=== PATIENT | female | born 1985 | race Caucasian/White ===

== ENCOUNTER 2020-01-31 13:49 | Emergency (ER) | payer OTHER, SELFPAY ==
[2020-01-31 14:00] VITALS: BP 123/87; PULSE 90; RESP 16; TEMP 36.7; O2SAT 99; BMI 23.2
[2020-01-31 14:06] VITALS: BP 123/87; PULSE 90; RESP 16; TEMP 36.7; O2SAT 99
--- NOTE | 2020-01-31 14:30 | XR_ITS ---
EXAMINATION: XR CHEST CLINICAL INFORMATION: Cough COMPARISON: Chest x-ray 09/01/2019 TECHNIQUE: Frontal portable view of the chest was obtained. 2:45 PM FINDINGS: No significant abnormality is noted involving the heart, lungs, mediastinum, bony thorax or soft tissues. XR/XR chest 1V IMPRESSION: Unremarkable examination.
--- NOTE | 2020-01-31 15:11 | ED.URI ---
HPI - URI/Sore Throat General Chief Complaint: Upper Respiratory Symptoms Stated Complaint: sore throat,cough Time Seen by Provider: 01/31/20 14:22 History of Present Illness HPI Narrative: Patient complains of runny nose for 2 days cough x1 day body aches mild sore throat but no pain with eating, no shortness of breath no fever no chills This started 2 days ago and is mild, there is no previous treatment Related Data Previous Rx's Medication Instructions Recorded azithromycin [Zithromax Z-Umesh] See Rx Instructions .ROUTE 01/31/20 .COMPLEX #6 tab azithromycin [Zithromax Z-Umesh] See Rx Instructions .ROUTE 01/31/20 .COMPLEX #6 tab Allergies Allergy/AdvReac Type Severity Reaction Status Date / Time Penicillins [PENICILLINS] Allergy Unknown UNKNOWN Unverified 12/06/19 19:51 Review of Systems Review of Systems: Review of systems is positive for runny nose cough and sore throat There is no fever no chills no weakness no shortness of breath no difficulty swallowing no sputum no abdominal pain no nausea no vomiting no diarrhea no leg swelling no calf pain no weakness Yes all other systems are reviewed and are negative [facility] Past Medical History Source: nursing notes reviewed Medical History (Updated 01/31/20 @ 15:24 by ERICK Reed) delivery delivered No known health problems Social History Social History Alcohol intake: never Smoking Status: Never smoker Use of substances other than those prescribed or required for medical reasons: No Advance Directives: No Advance Directives Information Provided: Yes Physical Exam Vital Signs: Vital Signs: Last Vital Signs Temp 98.1 F 01/31/20 14:06 Pulse 90 01/31/20 14:06 Resp 16 01/31/20 14:06 BP 123/87 01/31/20 14:06 Pulse Ox 99 01/31/20 14:06 Body Mass Index 23.2 Patient is comfortable appearing speaks full sentences no acute distress comfortable A&O x3 The eyes are normal without redness or discharge the nose the sinuses are nontender the throat is clear without redness swelling no drooling no voice change no exudate The chest is clear to auscultation bilaterally with full equal breath sounds The heart no murmurs Extremities no edema, no calf tenderness Neuro no focal deficit Course Course Course Narrative: Patient remains comfortable throughout visit, chest x-ray was negative As patient has history of multiple episodes of pneumonia in the past she is given a prescription for Zithromax and COVID results are pending and she is discharged Discharge Plan Discharge Clinical Impression: Bronchitis Patient Disposition: Home, Self-Care Additional Instructions: Chest x-ray was normal, but as you have had pneumonia several times before we gave you a prescription for Zithromax antibiotic We will call you with COVID test results in 1-3 days Return to ER any time for difficulty breathing, worsening symptoms any worse condition or any concerns Prescriptions: New azithromycin [Zithromax Z-Umesh] 250 mg tablet See Rx Instructions .ROUTE .COMPLEX Qty: 6 RF: 0 azithromycin [Zithromax Z-Umesh] 250 mg tablet See Rx Instructions .ROUTE .COMPLEX Qty: 6 RF: 0 Interventions: ED Discharge Assessment Last Done: 01/31/20 15:32 Discharge Date/Time: 01/31/20 15:33
== END 2020-01-31 15:33 | disposition home or self-care (01) ==
PROVIDERS: Physician Assistant Medical; Emergency Provider Emergency Medicine
DX: J40 Bronchitis, not specified as acute or chronic (principal); R05 Cough; M79.10 Myalgia, unspecified site; Z20.828 Contact with and (suspected) exposure to other viral communicable diseases
CPT/HCPCS: 71045; 99283; 99284; U0003

== ENCOUNTER 2020-05-08 12:33 | Emergency (ER) | payer OTHER, SELFPAY ==
--- NOTE | ~2020-05-08 | US_ITS ---
EXAMINATION: PELVIC ULTRASOUND WITH DOPPLER CLINICAL INFORMATION: Pelvic pain with question of tubo-ovarian abscess or torsion COMPARISON: CT abdomen pelvis earlier today TECHNIQUE: Both transabdominal and endovaginal scanning was performed. Color-flow Doppler imaging was utilized. FINDINGS: Normal-appearing anteverted and anteflexed uterus is present measuring 8.6 x 4.5 x 5.1 cm. No uterine masses are seen. The endometrium is homogeneous measuring 1 cm in thickness. The right ovary measures 2.9 x 1.8 x 1.4 cm for a volume of 3.8 mL and includes a approximately 1 cm cyst. Left ovary measures 3.6 x 1.8 x 1.7 cm for a volume of 5.8 mL and appears unremarkable. Trace fluid is present in the cul-de-sac. Doppler exam shows symmetric flow in both ovaries with no findings to suggest torsion. US/US pelvic ovarian doppler IMPRESSION: The uterus and ovaries are unremarkable. There is no evidence to suggest ovarian torsion or tubo-ovarian abscess.
--- NOTE | ~2020-05-08 | CT_ITS ---
EXAMINATION: CT ABDOMEN AND PELVIS WITH CONTRAST CLINICAL INFORMATION: Right lower quadrant pain and nausea with question of appendicitis COMPARISON: CT abdomen pelvis 08/08/2019 TECHNIQUE: Multidetector volumetric images were obtained from the superior aspect of the liver through the pubic symphysis following administration 85 mL of Omnipaque 350 intravenous contrast. Sagittal and coronal reformatted images were obtained on the technologist's workstation. Oral contrast: No This CT examination was performed using dose optimization techniques as appropriate, variously including the following: *Automated exposure control *Adjustment of mA and/or kV according to patient size (this includes techniques or standardized protocols for targeted exams where dose is matched to indication/reason for exam; i.e. extremities or head) *Use of iterative reconstruction technique DLP: 452 mGy-cm FINDINGS: LUNG BASES: The visualized lung bases are unremarkable. LIVER, GALLBLADDER, AND BILIARY TREE: The liver is normal in size, shape, and attenuation. A tiny hypodensity is seen in the right lobe of the liver most likely a cyst unchanged from the prior study (series 3 image 7). No worrisome focal hepatic lesion or biliary ductal dilatation is present. The gallbladder is unremarkable with no evidence of radiopaque gallstones, gallbladder wall thickening, or obvious pericholecystic inflammatory changes. PANCREAS: Unremarkable. SPLEEN: Unremarkable. ADRENAL GLANDS: Unremarkable. KIDNEYS AND URETERS: The kidneys are normal in size, shape, and attenuation. No hydronephrosis, hydroureter, or calculi seen. No perinephric stranding. BLADDER: Unremarkable. GASTROINTESTINAL TRACT: The small and large bowel are unremarkable. The appendix is unremarkable. ABDOMINAL WALL: No significant hernia is appreciated. LYMPH NODES: No retroperitoneal lymphadenopathy VASCULAR: Again noted is dilatation of both ovarian veins with reflux demonstrated. The right ovarian vein measures 8.5 mm in size in the left measures 1.3 cm. There are bilateral pelvic varices present as well. These can cause chronic pelvic pain especially if worsened with the prolonged upright position and relieved with the supine position. No other vascular abnormality is seen. PELVIC VISCERA: An anteverted uterus is present. An abnormal adnexal mass is not seen. Moderately extensive bilateral pelvic varices are noted (see above). No free pelvic fluid is seen. OSSEOUS STRUCTURES: Degenerative changes noted at L5-S1 with limbus S1 vertebrae. CT/CT abdomen pelvis w con IMPRESSION: 1. The appendix is unremarkable without evidence to suggest appendicitis. 2. 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 This can be a cause of chronic pelvic pain. Please see discussion above. Consultation with an interventional radiologist may be of value if the above-mentioned symptom complex is present.
--- NOTE | ~2020-05-08 | US_ITS ---
EXAMINATION: PELVIC ULTRASOUND WITH DOPPLER CLINICAL INFORMATION: Pelvic pain with question of tubo-ovarian abscess or torsion COMPARISON: CT abdomen pelvis earlier today TECHNIQUE: Both transabdominal and endovaginal scanning was performed. Color-flow Doppler imaging was utilized. FINDINGS: Normal-appearing anteverted and anteflexed uterus is present measuring 8.6 x 4.5 x 5.1 cm. No uterine masses are seen. The endometrium is homogeneous measuring 1 cm in thickness. The right ovary measures 2.9 x 1.8 x 1.4 cm for a volume of 3.8 mL and includes a approximately 1 cm cyst. Left ovary measures 3.6 x 1.8 x 1.7 cm for a volume of 5.8 mL and appears unremarkable. Trace fluid is present in the cul-de-sac. Doppler exam shows symmetric flow in both ovaries with no findings to suggest torsion. US/US transvaginal IMPRESSION: The uterus and ovaries are unremarkable. There is no evidence to suggest ovarian torsion or tubo-ovarian abscess.
--- NOTE | ~2020-05-08 | US_ITS ---
EXAMINATION: PELVIC ULTRASOUND WITH DOPPLER CLINICAL INFORMATION: Pelvic pain with question of tubo-ovarian abscess or torsion COMPARISON: CT abdomen pelvis earlier today TECHNIQUE: Both transabdominal and endovaginal scanning was performed. Color-flow Doppler imaging was utilized. FINDINGS: Normal-appearing anteverted and anteflexed uterus is present measuring 8.6 x 4.5 x 5.1 cm. No uterine masses are seen. The endometrium is homogeneous measuring 1 cm in thickness. The right ovary measures 2.9 x 1.8 x 1.4 cm for a volume of 3.8 mL and includes a approximately 1 cm cyst. Left ovary measures 3.6 x 1.8 x 1.7 cm for a volume of 5.8 mL and appears unremarkable. Trace fluid is present in the cul-de-sac. Doppler exam shows symmetric flow in both ovaries with no findings to suggest torsion. US/US pelvic complete IMPRESSION: The uterus and ovaries are unremarkable. There is no evidence to suggest ovarian torsion or tubo-ovarian abscess.
[2020-05-08 19:36] VITALS: BP 144/90; PULSE 71; RESP 18; TEMP 36.9; O2SAT 100; BMI 23.0
[2020-05-08] MEDS: 0.9 % Sodium Chloride 1,000 ML 999 ML IVCONT (20:09)
[2020-05-08] MEDS: ondansetron HCL 4 MG/2 ML VIAL IVPUSH (20:09)
--- NOTE | 2020-05-08 20:11 | PC.NURSE ---
iv inserted, labs drawn, urine obtained, pt medicated per order- pt refusing morphine at this time-provider aware, will continue to monitor.
[2020-05-08 20:12] LABS: MANUAL DIFF FLAG NO
[2020-05-08 20:15] LABS: Basophils Percent Auto 0.4 % (0-2); Eosinophils Absolute Auto 0.1 X10*3/uL (0.0-0.4); Eosinophils Percent Auto 1.6 % (0-4); Hematocrit 37.2 % (37-47); Hemoglobin 12.1 g/dl (12.0-16.0); Imm Gran Abs Auto 0.03 X10*3/uL (0.00-0.03); Imm Gran Pct Auto 0.4 % (0.0-0.4); Lymphocytes Absolute Auto 2.4 X10*3/uL (1.2-4.9); Lymphocytes Percent Auto 30.9 % (20-40); Mean Corpuscular HGB Conc 32.5 g/dl (31.0-35.0); Mean Corpuscular Hemoglobin 28.7 pg (27.0-33.0); Mean Corpuscular Volume 88.2 fL (80-98); Mean Platelet Volume 11.6 fL (9.4-12.3); Monocytes Absolute Auto 0.6 X10*3/uL (0.1-1.2); Monocytes Percent Auto 7.6 % (2-11); Neutrophils Absolute Auto 4.5 X10*3/uL (2.0-8.3); Neutrophils Percent Auto 59.1 % (45-73); Platelet Count 210 X10*3/uL (160-400); Red Blood Count 4.22 X10*6/uL (4.20-5.50); Red Cell Distribution Width 13.9 % (11.0-16.0); White Blood Count 7.7 X10*3/uL (4.8-10.8)
[2020-05-08 20:28] LABS: Glucose Urine UA NEG (NEG); Leukocyte Esterase Urine NEG (NEG); Nitrite Urine NEG (NEG); Urine Blood 2+ (NEG); Urine Ketones 5 MG/DL (NEG); Urine Protein NEG (NEG-TRACE)
[2020-05-08 20:30] LABS: Appearance Urine CLEAR; Color Urine YELLOW; INTERNATIONAL NORM RATIO 1.3 (0.9-1.1); Prothrombin Time 15.5 SEC (10.8-13.0)
[2020-05-08 20:39] LABS: Ethanol < 10 mg/dL
[2020-05-08 20:41] VITALS: BP 110/74; PULSE 83; RESP 18; TEMP 36.8; O2SAT 100
[2020-05-08 20:41] LABS: Amphetamine Screen Urine Not Detected (Not Detect); Barbiturates, Urine Not Detected (Not Detect); Benzodiazepines Screen Urine Not Detected (Not Detect); Cannabinoid Screen Urine Not Detected (Not Detect); Cocaine Screen Urine Not Detected (Not Detect); Opiate Screen Urine Not Detected (Not Detect); Phencyclidine Screen Urine Not Detected (Not Detect)
--- NOTE | 2020-05-08 20:42 | ED.ABDPAIN ---
HPI - Abdominal Pain General Chief Complaint: Abdominal Pain Stated Complaint: abd pain Time Seen by Provider: 05/08/20 12:39 Source: patient Mode of arrival: ambulatory Limitations: no limitations History of Present Illness HPI narrative: 34-year-old female with a past medical history of a section otherwise no other significant past medical history presenting to the ED with complaints of periumbilical abdominal pain that started yesterday that has now radiated to her right lower quadrant with associated nausea. Denies any fevers, chills, vomiting, sore throat, cough, shortness of breath, chest pain, back pain, dysuria, vaginal discharge, diarrhea or constipation or any other symptoms complaints or concerns at this time. Denies recent travel or sick contacts. MD elicited complaint: abdominal pain Pertinent past history: none Onset (ago): day(s) (Since last night worse today) Pain Consistency: constant Location: periumbilical and RLQ Severity: severe Quality: aching Exacerbating factors: movement Relieving factors: nothing Associated symptoms: nausea Related Data Date of Last Menstrual Period: 05/08/20 Patient : No Previous Rx's Medication Instructions Recorded azithromycin [Zithromax Z-Umesh] See Rx Instructions .ROUTE 01/31/20 .COMPLEX #6 tab azithromycin [Zithromax Z-Umesh] See Rx Instructions .ROUTE 01/31/20 .COMPLEX #6 tab Allergies Allergy/AdvReac Type Severity Reaction Status Date / Time Penicillins [PENICILLINS] Allergy Unknown UNKNOWN Unverified 12/06/19 19:51 Review of Systems Review of Systems Constitutional : No Weight loss, No Fever, No Chills, No Night Sweats, No Fatigue, NoMalaise ENT/Mouth: No ear pain, No sore throat, No Difficulty swallowing Cardiovascular : No Chest Pain, No SOB, No Dyspnea on Exertion, No Orthopnea, NoEdema, No Palpitations Respiratory : No Cough, No Sputum, No Wheezing, No Dyspnea Gastrointestinal : + Nausea, + Abdominal pain, No Vomiting, No Diarrhea, No Hematochezia, No Melena Genitourinary : No irregular bleeding, No Dysuria, No Urinary Frequency, No Hematuria,No Urinary Incontinence, No Urgency, No Flank Pain Musculoskeletal : No joint pain, No Myalgias, No Joint Swelling Skin : No Skin Lesions, No rash Neuro : No Weakness, No Numbness, No Paresthesias, No Loss of Consciousness, NoDizziness, No Headache Psych : No Social Issues, Heme/Lymph: No Bruising, No Bleeding,No Lymphadenopathy Endocrine : No Polyuria, No Polydipsia, No Temperature Intolerance Yes all other systems are reviewed and are negative Physical Exam Vital Signs: Vital Signs: Last Vital Signs Temp 98.3 F 05/08/20 20:41 Pulse 83 05/08/20 20:41 Resp 18 05/08/20 20:41 BP 110/74 05/08/20 20:41 Pulse Ox 100 05/08/20 20:41 Body Mass Index 23.0 vital signs have been reviewed as normal and appeared to be correct. Blood pressure hypertensive at 144/90. Heart rate normal. Respiration rate normal. Temperature normal. Oxygen saturation normal. Appearance: Alert. Oriented X3. In pain walking holding her right lower quadrant otherwise No other acute distress. Head: Normal external exam. Normocephalic. Eyes: PERRLA. EOMI. Conjunctiva and sclera normal. Eyelids normal. ENT: Pharynx normal. Uvula midline. Moist mucous membranes. Neck: Normal inspection. Neck supple. FROM. No adenopathy. No meningeal signs. CVS: Normal heart rate and rhythm. Heart sound normal. No murmurs noted. Pulses normal throughout. Respiratory: No respiratory distress. Painless inspiration. Breath sounds normal. No wheezes/rales/rhonchi noted. Chest nontender. No accessory muscle usage noted or decreased air movement noted. Abdomen: Soft and moderate tenderness to palpation diffusely although worse in the right lower quadrant with guarding. Positive Rovsing sign/obturator's sign/psoas sign. With positive rebound tenderness. Nondistended. rigidity. Bowel sounds normal in all 4 quadrants. No distention noted. No organomegaly noted. No visible injury noted. Negative Ledesma sign. Back: No CVA tenderness. Full range of motion noted. Skin: Skin warm and dry. Normal skin color. Normal skin turgor. No rashes/lesions/lacerations noted. Extremities: Extremities exhibit normal range of motion. Extremities nontender. Neuro: Oriented X 3. No motor deficit. No sensory deficit. Reflexes normal. Course Course Course Narrative: 20pm - 34-year-old female with a past medical history of a section otherwise no other significant past medical history presenting to the ED with complaints of periumbilical abdominal pain that started yesterday that has now radiated to her right lower quadrant with associated nausea. - On exam patient is in moderate pain holding her right lower quadrant otherwise not on any other acute distress. Vital signs are stable within normal limits. Patient is afebrile. Nontoxic appearing. No signs of dehydration. Has moderate tenderness to palpation of the right lower quadrant although her abdomen is soft. - Concern for appendicitis vs kidney stone vs UTI/pyelonephritis - Plan: Labs, UA, serum quant. Provide a L of IV fluids, 4 mg of Zofran I offered the patient morphine although patient declined she reports she took symptomatic treatment prior to arrival and help significantly. Along with a CT scan of abdomen and pelvis with IV contrast then re-evaluate. MDM - Abdominal Pain Lab Data Result diagrams: 05/08/20 20:00 05/08/20 20:00 Labs: Lab Results 05/08/20 05/08/20 05/08/20 Range/Units 20:00 20:00 20:00 WBC 7.7 (4.8-10.8) X10*3/uL RBC 4.22 (4.20-5.50) X10*6/uL Hgb 12.1 (12.0-16.0) g/dl Hct 37.2 (37-47) % MCV 88.2 (80-98) fL MCH 28.7 (27.0-33.0) pg MCHC 32.5 (31.0-35.0) g/dl RDW 13.9 (11.0-16.0) % Plt Count 210 (160-400) X10*3/uL MPV 11.6 (9.4-12.3) fL Immature Gran % (Auto) 0.4 (0.0-0.4) % Neut % (Auto) 59.1 (45-73) % Lymph % (Auto) 30.9 (20-40) % [place] % (Auto) 7.6 (2-11) % Eos % (Auto) 1.6 (0-4) % Baso % (Auto) 0.4 (0-2) % Lymph # (Auto) 2.4 (1.2-4.9) X10*3/uL [place] # (Auto) 0.6 (0.1-1.2) X10*3/uL Eos # (Auto) 0.1 (0.0-0.4) X10*3/uL Baso # (Auto) 0.0 (0.0-0.2) X10*3/uL Abs Immat Gran (auto) 0.03 (0.00-0.03) X10*3/uL Absolute Neuts (auto) 4.5 (2.0-8.3) X10*3/uL Absolute Nucleated RBC 0.000 (0.0-0.012) X10*3/uL Nucleated RBC % (auto) 0.0 (0.0-0.2) /100WBC PT 15.5 H (10.8-13.0) SEC INR 1.3 H (0.9-1.1) Urine Color Urine Appearance Urine pH (5.0-8.0) Ur Specific [place] (1.005-1.025) Urine Protein (NEG-TRACE) MG/DL Urine Glucose (UA) (NEG) MG/DL Urine Ketones (NEG) MG/DL Urine Blood (NEG) Urine Nitrite (NEG) Ur Leukocyte Esterase (NEG) Urine Opiates Screen (Not Detect) Ur Barbiturates Screen (Not Detect) Ur Phencyclidine Scrn (Not Detect) Ur Amphetamines Screen (Not Detect) U Benzodiazepines Scrn (Not Detect) Urine Cocaine Screen (Not Detect) U Marijuana (THC) Screen (Not Detect) Ethyl Alcohol < 10 mg/dL 05/08/20 05/08/20 Range/Units 20:00 20:00 WBC (4.8-10.8) X10*3/uL RBC (4.20-5.50) X10*6/uL Hgb (12.0-16.0) g/dl Hct (37-47) % MCV (80-98) fL MCH (27.0-33.0) pg MCHC (31.0-35.0) g/dl RDW (11.0-16.0) % Plt Count (160-400) X10*3/uL MPV (9.4-12.3) fL Immature Gran % (Auto) (0.0-0.4) % Neut % (Auto) (45-73) % Lymph % (Auto) (20-40) % [place] % (Auto) (2-11) % Eos % (Auto) (0-4) % Baso % (Auto) (0-2) % Lymph # (Auto) (1.2-4.9) X10*3/uL [place] # (Auto) (0.1-1.2) X10*3/uL Eos # (Auto) (0.0-0.4) X10*3/uL Baso # (Auto) (0.0-0.2) X10*3/uL Abs Immat Gran (auto) (0.00-0.03) X10*3/uL Absolute Neuts (auto) (2.0-8.3) X10*3/uL Absolute Nucleated RBC (0.0-0.012) X10*3/uL Nucleated RBC % (auto) (0.0-0.2) /100WBC PT (10.8-13.0) SEC INR (0.9-1.1) Urine Color YELLOW Urine Appearance CLEAR Urine pH 6.0 (5.0-8.0) Ur Specific [place] 1.020 (1.005-1.025) Urine Protein NEG (NEG-TRACE) MG/DL Urine Glucose (UA) NEG (NEG) MG/DL Urine Ketones 5 (NEG) MG/DL Urine Blood 2+ H (NEG) Urine Nitrite NEG (NEG) Ur Leukocyte Esterase NEG (NEG) Urine Opiates Screen Not Detected (Not Detect) Ur Barbiturates Screen Not Detected (Not Detect) Ur Phencyclidine Scrn Not Detected (Not Detect) Ur Amphetamines Screen Not Detected (Not Detect) U Benzodiazepines Scrn Not Detected (Not Detect) Urine Cocaine Screen Not Detected (Not Detect) U Marijuana (THC) Screen Not Detected (Not Detect) Ethyl Alcohol mg/dL Discharge Plan Discharge Prescriptions: No Action azithromycin [Zithromax Z-Umesh] 250 mg tablet See Rx Instructions .ROUTE .COMPLEX Qty: 6 RF: 0 azithromycin [Zithromax Z-Umesh] 250 mg tablet See Rx Instructions .ROUTE .COMPLEX Qty: 6 RF: 0 PMFSH Past Medical History Attestation statement: The following information was validated with the patient. Medical History delivery delivered No known health problems Date of Last Menstrual Period: 05/08/20 Social History Social History Alcohol intake: never Smoking Status: Never smoker Use of substances other than those prescribed or required for medical reasons: No Advance Directives: No Advance Directives Information Provided: No
[2020-05-08 20:43] LABS: Bacteria Urine TRACE /LPF; Mucus Urine TRACE /LPF; Squamous Epithelial Cell Urine TRACE /LPF; UACC CULT NO; WBC Urine 0-2 /HPF (0-4)
[2020-05-08 20:48] LABS: HCG Quantitative < 2 mIU/mL
[2020-05-08 20:49] LABS: Influenza A PCR NEGATIVE (Negative); Influenza B PCR NEGATIVE (Negative); Resp Syncy Virus RNA Qual PCR NEGATIVE (Negative); SARS COV2 PCR INHOUSE NEGATIVE (Negative)
[2020-05-08 20:57] LABS: Alanine Aminotransferase 12 U/L (0-31); Albumin Level 4.6 g/dL (3.5-5.0); Alkaline Phosphatase 65 U/L (39-117); Anion Gap 14 (12-20); Aspartate Amino Transferase 15 U/L (5-31); Bilirubin Direct 0.2 mg/dL (0.0-0.5); Blood Urea Nitrogen 7 mg/dL (9-16); Carbon Dioxide 27 mmol/L (22-29); Chloride 100 mmol/L (96-108); Creatinine Clr Calc Pharmacy 96.7; Estimated Glomerular Filt Rate > 60; Glucose Random 91 mg/dL (60-115); Lipase 10 U/L (8-78); Potassium 3.7 mmol/L (3.3-5.1); Sodium 137 mmol/L (135-145); Total Protein 7.5 g/dL (6.5-8.0)
[2020-05-08 21:07] LABS: Bilirubin Total 0.6 mg/dL (0.0-1.0)
[2020-05-08 21:11] LABS: UPreg QC Valid YES; Urine Pregnancy NEGATIVE (NEGATIVE)
[2020-05-08] MEDS: iohexoL 350 MG/ML 100 ML INFUS..BTL IV (21:16)
[2020-05-08 22:52] VITALS: BP 113/66; PULSE 66; RESP 18; TEMP 36.9; O2SAT 99
[2020-05-09] VITALS: BP 99/62; PULSE 71; RESP 18; TEMP 37.2; O2SAT 100
[2020-05-09 02:00] VITALS: BP 105/67; PULSE 80; RESP 18; TEMP 36.8; O2SAT 100
== END 2020-05-09 02:09 | disposition home or self-care (01) ==
PROVIDERS: Physician Assistant Medical; Emergency Provider Emergency Medicine Emergency Medical Services
DX: N94.89 Other specified conditions associated with female genital organs and menstrual cycle (principal); N83.201 Unspecified ovarian cyst, right side; Z20.822 Contact with and (suspected) exposure to COVID-19
CPT/HCPCS: 0241U; 36415; 74177; 76830; 76856; 80048; 80076; 80307; 80320; 81001; 81025; 83690; 83735; 84702; 85025; 85610; 93975; 96361; 96374; 96375; 99284; 99285; J2405; Q9967

== ENCOUNTER 2020-07-06 10:04 | Emergency (ER) | payer OTHER, SELFPAY ==
[2020-07-06 10:07] VITALS: BP 121/70; PULSE 80; RESP 16; TEMP 36.9; O2SAT 100; BMI 25.0
--- NOTE | 2020-07-06 10:25 | ED.EYEPROB ---
HPI - Eye Problem General Chief complaint: Eye Problems Stated complaint: EYE ISSUE Time Seen by Provider: 07/06/20 10:16 Source: patient Mode of arrival: ambulatory Limitations: no limitations History of Present Illness HPI Narrative: Patient presents to the ED for painful lump on right upper eyelid for the past 4 days. Patient denies any recent trauma to the eye. Patient denies any change in vision, blurry vision, watery discharge, foreign body in the eye, or headache. Related Data Previous Rx's Medication Instructions Recorded azithromycin [Zithromax Z-Umesh] See Rx Instructions .ROUTE 01/31/20 .COMPLEX #6 tab azithromycin [Zithromax Z-Umesh] See Rx Instructions .ROUTE 01/31/20 .COMPLEX #6 tab naproxen 500 mg PO BID PRN #20 tab 05/09/20 doxycycline hyclate 100 mg PO BID 10 Days #20 cap 07/06/20 Allergies Allergy/AdvReac Type Severity Reaction Status Date / Time Penicillins [PENICILLINS] Allergy Unknown UNKNOWN Unverified 12/06/19 19:51 Review of Systems Review of Systems: Yes all other systems are reviewed and are negative Constitutional: Constitutional: Reports as per HPI and Reports no additional constitutional complaints Eyes: Eyes: Reports as per HPI and Reports no additional eye complaints Comments: Lump on right eye ENT: Reports system reviewed and no additional complaints, except as documented and Reports as per HPI Cardiovascular: Cardiovascular: Reports as per HPI and Reports no additional cardiovascular complaints Respiratory: Respiratory: Reports as per HPI and Reports no additional respiratory complaints Gastrointestinal: Gastrointestinal: Reports as per HPI and Reports no additional gastrointestinal complaints Musculoskeletal: Musculoskeletal: Reports no additional musculoskeletal complaints and Reports as per HPI Neurologic: Reports system reviewed and no additional complaints, except as documented and Reports as per HPI Psychiatric: Psychiatric: Reports no additional psychiatric complaints and Reports as per HPI PMF Past Medical History Medical History delivery delivered No known health problems Social History Social History Alcohol intake: never Smoking Status: Never smoker Advance Directives: No Advance Directives Information Provided: No Physical Exam Vital Signs: Vital Signs: Last Vital Signs Temp 98.5 F 07/06/20 10:07 Pulse 80 07/06/20 10:07 Resp 16 07/06/20 10:07 BP 121/70 07/06/20 10:07 Pulse Ox 100 07/06/20 10:07 Body Mass Index 25.0 Const: General: cooperative, healthy appearing, comfortable, no acute distress, well developed, alert and awake; No Physically active Orientation/consciousness: patient oriented x3 HENMT: Head: Yes normal to inspection, Yes No palpable skull fracture present, Yes normocephalic, Yes atraumatic, No abrasion, No Weston's sign, No contusion, No cranial bruits, No hematoma, No laceration, No occipital foramen tenderness, No palpable skull fracture, No raccoon eyes, No scalp lesion, No scalp tenderness, No Temporal artery tenderness present and No periorbital ecchymosis Eyes: Other: Right eye; positive for painful lump on the right upper eyelid with some erythema. Negative for any discharge, negative for erythema of conjunctiva/scleral. Left eye: Normal Neck: Neck: Yes normal visual inspection, Yes full ROM, Yes no lymphadenopathy, Yes no meningeal signs, Yes trachea midline, Yes supple and No tender Chest: Chest palpation & inspection: normal inspection of the chest and normal palpation of entire chest wall Resp: Effort & Inspection: normal respiratory effort and able to speak in complete sentences Auscultation: clear to auscultation bilaterally Cardio: Jugular venous distension: no JVD Heart sounds: S1 normal heart sound present and S2 normal heart sound present GI: Inspection: Yes normal to inspection and No abdominal wall ecchymosis Palpation (GI): Soft to palpation, not firm, nontender, no guarding and not rigid : General: No CVA tenderness and Yes no CVA tenderness Back/Spine/Pelvis: Back: no CVA tenderness, No CVA tenderness and No back tenderness Skin: General skin exam: no rashes or lesions noted and elasticity normal Neuro: General: patient oriented x3, no meningeal signs and CN's II-XI intact bilaterally Cranial nerves: Yes CN's II-XII intact bilaterally Extrem: General: Yes normal to inspection and Yes full ROM Psych: Appearance: grossly normal, well kempt and not disheveled Course Course Course Narrative: History physical exam indicates stye. Patient educated on stye. Reevaluation(s) Reevaluation #1: Patient informed to continue practicing warm compress and will be discharged with doxycycline. Patient form at times stye can become chronic and recommend follow-up with engineering coordinator. MDM - Eye Problem MDM Narrative Medical decision making narrative: syte Discharge Plan Discharge Clinical Impression: External hordeolum Patient Disposition: Home, Self-Care Instructions: Stye (ED) Additional Instructions: Return to the ED immediately for worsening swelling, redness, change in vision, headache, dizziness, fever, chills, or any other concerning symptoms. Recommend warm compress on eye 4 times a day for 15 minutes. Take antibiotics as prescribed. You take [id number] NSAIDs ( motrin/alleve). Prescriptions: New doxycycline hyclate 100 mg capsule 100 mg PO BID 10 Days Qty: 20 RF: 0 No Action azithromycin [Zithromax Z-Umesh] 250 mg tablet See Rx Instructions .ROUTE .COMPLEX Qty: 6 RF: 0 azithromycin [Zithromax Z-Umesh] 250 mg tablet See Rx Instructions .ROUTE .COMPLEX Qty: 6 RF: 0 naproxen 500 mg tablet 500 mg PO BID PRN (Reason: pain) Qty: 20 RF: 0 Referrals: Kobi Lunsford [Physician] - 2 days (Right eye stye) Interventions: ED Discharge Assessment Last Done: 07/06/20 10:45 Discharge Date/Time: 07/06/20 10:45 Print Language: Tajik
== END 2020-07-06 10:45 | disposition home or self-care (01) ==
PROVIDERS: Emergency Provider Emergency Medicine
DX: H00.011 Hordeolum externum right upper eyelid (principal)
CPT/HCPCS: 99283

== ENCOUNTER 2020-10-13 15:08 | Outpatient (REF) | payer OTHER, SELFPAY ==
[2020-10-13 15:26] LABS: MANUAL DIFF FLAG NO
[2020-10-13 15:33] LABS: Basophils Percent Auto 0.3 % (0-2); Eosinophils Absolute Auto 0.2 X10*3/uL (0.0-0.4); Eosinophils Percent Auto 2.2 % (0-4); Hematocrit 34.5 % (37-47); Hemoglobin 11.1 g/dl (12.0-16.0); Imm Gran Abs Auto 0.01 X10*3/uL (0.00-0.03); Imm Gran Pct Auto 0.1 % (0.0-0.4); Lymphocytes Absolute Auto 2.2 X10*3/uL (1.2-4.9); Lymphocytes Percent Auto 33.1 % (20-40); Mean Corpuscular HGB Conc 32.2 g/dl (31.0-35.0); Mean Corpuscular Hemoglobin 28.4 pg (27.0-33.0); Mean Corpuscular Volume 88.2 fL (80-98); Mean Platelet Volume 11.4 fL (9.4-12.3); Monocytes Absolute Auto 0.5 X10*3/uL (0.1-1.2); Monocytes Percent Auto 7.5 % (2-11); Neutrophils Absolute Auto 3.8 X10*3/uL (2.0-8.3); Neutrophils Percent Auto 56.8 % (45-73); Platelet Count 209 X10*3/uL (160-400); Red Blood Count 3.91 X10*6/uL (4.20-5.50); Red Cell Distribution Width 13.2 % (11.0-16.0); White Blood Count 6.7 X10*3/uL (4.8-10.8)
[2020-10-13 16:19] LABS: T4 Thyroxine 6.4 ug/dL (4.5-12.0); Thyroid Stimulating Hormone 1.08 uIU/mL (0.32-4.0)
== END 2020-10-13 15:09 | disposition home or self-care (01) ==
LOC: HO.LAB 15:08
PROVIDERS: Visit Provider Psychiatry & Neurology Neurology
DX: R51.9 Headache, unspecified (principal); F41.9 Anxiety disorder, unspecified
CPT/HCPCS: 36415; 84436; 84443; 85025

== ENCOUNTER 2020-12-19 20:04 | Inpatient (IN) | payer OTHER, SELFPAY ==
--- NOTE | ~2020-12-19 | CT_ITS ---
EXAMINATION: CT ABDOMEN AND PELVIS WITH CONTRAST CLINICAL INFORMATION: Right lower quadrant pain COMPARISON: Previous CT scan of the abdomen and pelvis most recent 12/19/2020 and pelvic ultrasound April 2020 TECHNIQUE: Multidetector volumetric images were obtained from the superior aspect of the liver through the pubic symphysis following administration 85 mL of Omnipaque 350 intravenous contrast. Sagittal and coronal reformatted images were obtained on the technologist's workstation. Oral contrast: Yes This CT examination was performed using dose optimization techniques as appropriate, variously including the following: *Automated exposure control *Adjustment of mA and/or kV according to patient size (this includes techniques or standardized protocols for targeted exams where dose is matched to indication/reason for exam; i.e. extremities or head) *Use of iterative reconstruction technique DLP: 330 mGy-cm FINDINGS: LUNG BASES: The visualized lung bases are unremarkable. LIVER, GALLBLADDER, AND BILIARY TREE: The liver is normal in size, shape, and attenuation. There are small low-attenuation liver lesions that are stable and probably represent small cysts. No biliary ductal dilatation is present. The gallbladder is unremarkable with no evidence of radiopaque gallstones, gallbladder wall thickening, or obvious pericholecystic inflammatory changes. PANCREAS: Unremarkable. SPLEEN: Unremarkable. ADRENAL GLANDS: Unremarkable. KIDNEYS AND URETERS: The kidneys are normal in size, shape, and attenuation. No hydronephrosis, hydroureter, or calculi seen. No perinephric stranding. BLADDER: Unremarkable. GASTROINTESTINAL TRACT: The small and large bowel are unremarkable. The appendix is unchanged. The appendix is difficult to visualize on axial and sagittal reconstructed images and is best seen on coronal images. The base of the appendix appears minimally thickened measuring 9 mm, coronal reconstructed image 30. The more distal appendix is upper normal in size measuring 7 to 8 mm coronal reconstructed image 26. This is similar to previous exam 12/19/2020. The periappendiceal fat is normal. ABDOMINAL WALL: No significant hernia is appreciated. LYMPH NODES: Normal. VASCULAR: Unremarkable. PELVIC VISCERA: There are prominent pelvic vessels again questionable for pelvic congestion. Uterus and adnexa are otherwise normal. OSSEOUS STRUCTURES: There are degenerative changes at L5-S1. CT/CT abdomen pelvis w con IMPRESSION: Stable appearance of the appendix from 12/19/2020. The base of the appendix is minimally thickened measuring 9 mm. The tip of the appendix is upper normal in size measuring 7 to 8 mm in diameter. The periappendiceal fat is normal. Appearance is again questionable for early acute appendicitis. Prominent pelvic vessels questionable for pelvic congestion.
--- NOTE | ~2020-12-19 | CT_ITS ---
EXAMINATION: CT ABDOMEN AND PELVIS WITH CONTRAST CLINICAL INFORMATION: Right lower quadrant/suprapubic pain. COMPARISON: CT abdomen/pelvis dated from 05/08/2020 and 08/08/2019. TECHNIQUE: Multidetector volumetric images were obtained from the superior aspect of the liver through the pubic symphysis following administration 85 mL of Omnipaque 350 intravenous contrast. Sagittal and coronal reformatted images were obtained on the technologist's workstation. Oral contrast: No This CT examination was performed using dose optimization techniques as appropriate, variously including the following: *Automated exposure control *Adjustment of mA and/or kV according to patient size (this includes techniques or standardized protocols for targeted exams where dose is matched to indication/reason for exam; i.e. extremities or head) *Use of iterative reconstruction technique DLP: 441 mGy-cm FINDINGS: LUNG BASES: The visualized lung bases are unremarkable. LIVER, GALLBLADDER, AND BILIARY TREE: A few too small to characterize hypodensities, for instance image 11 series 3, are stable since 2019 and likely represent cysts. No new focal liver abnormalities. There is no biliary duct dilatation. The gallbladder is unremarkable. PANCREAS: No focal abnormalities. The main pancreatic duct is nondilated. There is no significant peripancreatic free fluid or fat stranding. SPLEEN: Unremarkable. ADRENAL GLANDS: Unremarkable. KIDNEYS AND URETERS: The kidneys are normal in size, shape, and attenuation. There is a punctate stone in the upper pole the right kidney (36, 7). No hydronephrosis. No perinephric stranding. BLADDER: Underdistended without focal abnormalities. GASTROINTESTINAL TRACT: The stomach and the small bowel are nondilated. The appendix is thickened measuring up to 9 mm, slightly increase since prior when measured 7 to 8 mm. There is however no significant surrounding inflammatory changes or free fluid. The distal colon is under distended limiting its evaluation. There is no evidence of pericolic inflammatory changes. There is no bowel obstruction. ABDOMINAL WALL: No significant hernia is appreciated. LYMPH NODES: No lymphadenopathy by size criteria. VASCULAR: Similar to prior, there are prominent ovarian veins with associated pelvic varices. Normal caliber of the abdominal aorta. PELVIC VISCERA: Prominent pelvic varices. Normal CT appearance of the uterus. No adnexal lesions. Physiologic functional follicles in both ovaries are noted. OSSEOUS STRUCTURES: No acute osseous findings. Unchanged endplate irregularities and degenerative changes at L5-S1. CT/CT abdomen pelvis w con IMPRESSION: There is a dilated appendix measuring up to 9 mm which is concerning for acute appendicitis in the appropriate clinical setting. There is however no significant associated inflammatory changes or free fluid. Redemonstration of engorged ovarian veins with numerous pelvic varicosities, which could cause chronic pelvic pain. Punctate stone in the upper pole of the right kidney. This critical result was discussed with Dr Daniel at 12/20/2020 12:04 AM and it was ascertained that the content and urgency of the report was understood at the time of direct communication.
[2020-12-19 20:48] VITALS: BP 145/79; PULSE 116; RESP 18; TEMP 37.9; O2SAT 100; BMI 22.8
--- NOTE | 2020-12-19 22:24 | ED_ITS ---
HPI - Abdominal Pain General Chief Complaint: Abdominal Pain Stated Complaint: Flank pain Time Seen by Provider: 12/19/20 22:07 Source: patient Mode of arrival: ambulatory History of Present Illness HPI narrative: 35-year-old female without significant past medical history other than prior UTIs presents with waking up this morning with lower abdominal pain maximal at right lower quadrant area with radiation into the flank and stating that she feels it into the proximal portion of her right lower extremity that has not been associated with urinary symptoms. However, she reports that she has had nausea without vomiting, decrease in appetite, headache but denies any sore throat/cough/shortness of breath and states that she has had a fast heart rate. She reports subjective fevers as well as chills and does have a positive intra-abdominal surgical history of . LMP-2 days ago and currently menstruating. Related Data Previous Rx's Medication Instructions Recorded azithromycin 250 mg tablet See Rx Instructions .ROUTE 01/31/20 (Zithromax Z-Umesh) .COMPLEX #6 tab azithromycin 250 mg tablet See Rx Instructions .ROUTE 01/31/20 (Zithromax Z-Umesh) .COMPLEX #6 tab naproxen 500 mg tablet 500 mg PO BID PRN #20 tab 05/09/20 doxycycline hyclate 100 mg capsule 100 mg PO BID 10 Days #20 cap 07/06/20 Allergies Allergy/AdvReac Type Severity Reaction Status Date / Time Penicillins [PENICILLINS] Allergy Unknown UNKNOWN Unverified 12/06/19 19:51 Review of Systems Review of Systems Pertinent positives and negatives as stated in HPI 10 point review of systems otherwise negative. Physical Exam Vital Signs: Vital Signs: Last Vital Signs Temp 100.3 F 12/19/20 20:48 Pulse 87 12/19/20 22:52 Resp 16 12/19/20 22:52 BP 102/63 12/19/20 23:54 Pulse Ox 100 12/19/20 20:48 Body Mass Index 22.8 VITAL SIGNS: Reviewed. GENERAL: Well developed, well nourished, in no acute distress. HEAD: Normocephalic/atraumatic EYES: PERRLA, EOMI EARS: Ext canals without abnormality OROPHARYNX: no oral lesions noted, posterior pharynx clear NECK: Supple, no adenopathy LUNGS: Normal breath sounds. No adventitious sounds or accessory muscle use. SpO2<100> CARDIOVASCULAR: Regular rate and rhythm without noted murmurs, no JVD or lower extremity edema. ABDOMEN: Soft, acutely tender in suprapubic/right lower quadrant, non-distended with bowel sounds. MUSCULOSKELETAL: No tenderness, deformities, or effusions noted on gross inspection. EXTREMITIES: No cyanosis, clubbing or edema. SKIN: Inspection of the skin reveals no rashes. NEUROLOGIC: Alert and oriented x 4. Strength and sensation to light touch were grossly intact x 4. Course Course Course Narrative: 35-year-old female with history and clinical presentation suggestive of appendicitis, ectopic, UTI, low clinical suspicion for ovarian torsion. Review of all investigations taken in conjunction with history and clinical exam most consistent with early appendicitis. Patient was given antibiotics and case was discussed with Dr. John who is agreeable for admission. Patient was informed of all results and findings. MDM - Abdominal Pain Lab Data Result diagrams: 12/19/20 22:48 12/19/20 22:48 Labs: Lab Results 12/19/20 12/19/20 12/19/20 Range/Units 22:48 22:48 22:48 WBC 10.3 (4.8-10.8) X10*3/uL RBC 3.96 L (4.20-5.50) X10*6/uL Hgb 11.5 L (12.0-16.0) g/dl Hct 34.5 L (37-47) % MCV 87.1 (80-98) fL MCH 29.0 (27.0-33.0) pg MCHC 33.3 (31.0-35.0) g/dl RDW 13.4 (11.0-16.0) % Plt Count 200 (160-400) X10*3/uL MPV 11.5 (9.4-12.3) fL Immature Gran % (Auto) 0.3 (0.0-0.4) % Neut % (Auto) 89.0 H (45-73) % Lymph % (Auto) 5.9 L (20-40) % [place] % (Auto) 4.6 (2-11) % Eos % (Auto) 0.1 (0-4) % Baso % (Auto) 0.1 (0-2) % Lymph # (Auto) 0.6 L (1.2-4.9) X10*3/uL [place] # (Auto) 0.5 (0.1-1.2) X10*3/uL Eos # (Auto) 0.0 (0.0-0.4) X10*3/uL Baso # (Auto) 0.0 (0.0-0.2) X10*3/uL Abs Immat Gran (auto) 0.03 (0.00-0.03) X10*3/uL Absolute Neuts (auto) 9.2 H (2.0-8.3) X10*3/uL Absolute Nucleated RBC 0.000 (0.0-0.012) X10*3/uL Nucleated RBC % (auto) 0.0 (0.0-0.2) /100WBC Sodium 138 (135-145) mmol/L Potassium 3.6 (3.3-5.1) mmol/L Chloride 105 (96-108) mmol/L Carbon Dioxide 25 (22-29) mmol/L Anion Gap 12 (12-20) BUN 8 L (9-16) mg/dL Creatinine 0.68 (0.5-1.4) mg/dL Estim Creat Clear Calc 93.0 Estimated GFR > 60 Random Glucose 109 (60-115) mg/dL Lactic Acid (0.5-2.0) mmol/L Calcium 9.4 (8.4-10.2) mg/dL Total Bilirubin 0.6 (0.0-1.0) mg/dL AST 14 (5-31) U/L ALT 8 (0-31) U/L Alkaline Phosphatase 55 (39-117) U/L Total Protein 7.3 (6.5-8.0) g/dL Albumin 4.5 (3.5-5.0) g/dL Lipase 14 (8-78) U/L Urine Color YELLOW Urine Appearance CLEAR Urine pH 7.0 (5.0-8.0) Ur Specific [place] 1.010 (1.005-1.025) Urine Protein NEG (NEG-TRACE) MG/DL Urine Glucose (UA) NEG (NEG) MG/DL Urine Ketones NEG (NEG) MG/DL Urine Blood 1+ H (NEG) Urine Nitrite NEG (NEG) Ur Leukocyte Esterase NEG (NEG) Urine RBC 1-4 (0) /HPF Urine WBC 0-2 (0-4) /HPF Ur Squamous Epith Cells 2+ /LPF Urine Bacteria NONE /LPF Urine Mucus TRACE /LPF Urine Test (NEGATIVE) 12/19/20 12/19/20 Range/Units 22:48 22:49 WBC (4.8-10.8) X10*3/uL RBC (4.20-5.50) X10*6/uL Hgb (12.0-16.0) g/dl Hct (37-47) % MCV (80-98) fL MCH (27.0-33.0) pg MCHC (31.0-35.0) g/dl RDW (11.0-16.0) % Plt Count (160-400) X10*3/uL MPV (9.4-12.3) fL Immature Gran % (Auto) (0.0-0.4) % Neut % (Auto) (45-73) % Lymph % (Auto) (20-40) % [place] % (Auto) (2-11) % Eos % (Auto) (0-4) % Baso % (Auto) (0-2) % Lymph # (Auto) (1.2-4.9) X10*3/uL [place] # (Auto) (0.1-1.2) X10*3/uL Eos # (Auto) (0.0-0.4) X10*3/uL Baso # (Auto) (0.0-0.2) X10*3/uL Abs Immat Gran (auto) (0.00-0.03) X10*3/uL Absolute Neuts (auto) (2.0-8.3) X10*3/uL Absolute Nucleated RBC (0.0-0.012) X10*3/uL Nucleated RBC % (auto) (0.0-0.2) /100WBC Sodium (135-145) mmol/L Potassium (3.3-5.1) mmol/L Chloride (96-108) mmol/L Carbon Dioxide (22-29) mmol/L Anion Gap (12-20) BUN (9-16) mg/dL Creatinine (0.5-1.4) mg/dL Estim Creat Clear Calc Estimated GFR Random Glucose (60-115) mg/dL Lactic Acid 0.7 (0.5-2.0) mmol/L Calcium (8.4-10.2) mg/dL Total Bilirubin (0.0-1.0) mg/dL AST (5-31) U/L ALT (0-31) U/L Alkaline Phosphatase (39-117) U/L Total Protein (6.5-8.0) g/dL Albumin (3.5-5.0) g/dL Lipase (8-78) U/L Urine Color Urine Appearance Urine pH (5.0-8.0) Ur Specific [place] (1.005-1.025) Urine Protein (NEG-TRACE) MG/DL Urine Glucose (UA) (NEG) MG/DL Urine Ketones (NEG) MG/DL Urine Blood (NEG) Urine Nitrite (NEG) Ur Leukocyte Esterase (NEG) Urine RBC (0) /HPF Urine WBC (0-4) /HPF Ur Squamous Epith Cells /LPF Urine Bacteria /LPF Urine Mucus /LPF Urine Test NEGATIVE (NEGATIVE) Discharge Plan Discharge Clinical Impression: Acute appendicitis Patient Disposition: Admitted As Inpatient Prescriptions: No Action azithromycin [Zithromax Z-Umesh] 250 mg tablet See Rx Instructions .ROUTE .COMPLEX Qty: 6 RF: 0 azithromycin [Zithromax Z-Umesh] 250 mg tablet See Rx Instructions .ROUTE .COMPLEX Qty: 6 RF: 0 naproxen 500 mg tablet 500 mg PO BID PRN (Reason: pain) Qty: 20 RF: 0 doxycycline hyclate 100 mg capsule 100 mg PO BID 10 Days Qty: 20 RF: 0 PMFSH Past Medical History Source: nursing notes reviewed Medical History delivery delivered No known health problems Social History Social History Alcohol intake: never Patient Tobacco Use Status: Never used Tobacco Use of substances other than those prescribed or required for medical reasons: No Advance Directives: No Advance Directives Information Provided: No Patient : No
[2020-12-19] MEDS: 0.9 % Sodium Chloride 1,000 ML 999 ML IV (22:50)
[2020-12-19] MEDS: Acetaminophen 325 MG TABLET 975 MG PO (22:51)
[2020-12-19 22:52] VITALS: BP 113/66; PULSE 87; RESP 16
[2020-12-19 22:53] LABS: MANUAL DIFF FLAG NO
[2020-12-19 22:54] LABS: Basophils Percent Auto 0.1 % (0-2); Eosinophils Percent Auto 0.1 % (0-4); Hematocrit 34.5 % (37-47); Hemoglobin 11.5 g/dl (12.0-16.0); Imm Gran Abs Auto 0.03 X10*3/uL (0.00-0.03); Imm Gran Pct Auto 0.3 % (0.0-0.4); Lymphocytes Absolute Auto 0.6 X10*3/uL (1.2-4.9); Lymphocytes Percent Auto 5.9 % (20-40); Mean Corpuscular HGB Conc 33.3 g/dl (31.0-35.0); Mean Corpuscular Volume 87.1 fL (80-98); Mean Platelet Volume 11.5 fL (9.4-12.3); Monocytes Absolute Auto 0.5 X10*3/uL (0.1-1.2); Monocytes Percent Auto 4.6 % (2-11); Neutrophils Absolute Auto 9.2 X10*3/uL (2.0-8.3); Platelet Count 200 X10*3/uL (160-400); Red Blood Count 3.96 X10*6/uL (4.20-5.50); Red Cell Distribution Width 13.4 % (11.0-16.0); White Blood Count 10.3 X10*3/uL (4.8-10.8)
[2020-12-19 22:58] LABS: Appearance Urine CLEAR; Color Urine YELLOW; Glucose Urine UA NEG (NEG); Leukocyte Esterase Urine NEG (NEG); Nitrite Urine NEG (NEG); UACC Culture Trigger NO; Urine Blood 1+ (NEG); Urine Ketones NEG (NEG); Urine Protein NEG (NEG-TRACE)
[2020-12-19 22:59] LABS: UPreg QC Valid YES; Urine Pregnancy NEGATIVE (NEGATIVE)
[2020-12-19 23:06] LABS: Mucus Urine TRACE /LPF; Squamous Epithelial Cell Urine 2+ /LPF; WBC Urine 0-2 /HPF (0-4)
[2020-12-19 23:07] LABS: Lactic Acid 0.7 mmol/L (0.5-2.0)
[2020-12-19 23:13] LABS: Alanine Aminotransferase 8 U/L (0-31); Albumin Level 4.5 g/dL (3.5-5.0); Alkaline Phosphatase 55 U/L (39-117); Anion Gap 12 (12-20); Aspartate Amino Transferase 14 U/L (5-31); Bilirubin Total 0.6 mg/dL (0.0-1.0); Blood Urea Nitrogen 8 mg/dL (9-16); Calcium 9.4 mg/dL (8.4-10.2); Carbon Dioxide 25 mmol/L (22-29); Chloride 105 mmol/L (96-108); Estimated Glomerular Filt Rate > 60; Glucose Random 109 mg/dL (60-115); Lipase 14 U/L (8-78); Potassium 3.6 mmol/L (3.3-5.1); Sodium 138 mmol/L (135-145); Total Protein 7.3 g/dL (6.5-8.0)
[2020-12-19] MEDS: iohexoL 350 MG/ML 100 ML INFUS..BTL 85 ML IV (23:42)
[2020-12-19 23:54] VITALS: BP 102/63
[2020-12-20] MEDS: metroNIDAZOLE/NS 500 MG/100 ML PIGGYBACK 100 MG IV ×4 (00:56→23:59)
[2020-12-20] MEDS: cefTRIAXone sodium 1 GM in 0.9 % Sodium Chloride 50 ML IV ×3 (00:58→21:22)
[2020-12-20 01:04] VITALS: BP 106/66; PULSE 77; TEMP 36.8; O2SAT 93
[2020-12-20] MEDS: Dextrose 5 % and Lactated Ring 1,000 ML 100 ML IVCONT ×3 (02:19→23:59)
[2020-12-20 03:53] VITALS: BP 101/65; PULSE 72; RESP 12; O2SAT 100
[2020-12-20 04:15] LABS: COVID-19 Test Negative (Negative)
--- NOTE | 2020-12-20 05:02 | PC.NURSE ---
Previous Iv removed due to discomfort. new one placed.
[2020-12-20 08:34] VITALS: BP 100/60; PULSE 73; RESP 14; TEMP 36.7; O2SAT 97
--- NOTE | 2020-12-20 09:39 | PM.HPGS ---
History of Present Illness History of Present Illness Date of Service: 12/20/20 Chief complaint: Abdominal pain Narrative: Keegan Rose is a 35 year old female who experienced acute onset of right lower quadrant abdominal pain associated with mild nausea, slight fever and diminished appetite yesterday. The pain was persistent and gradually worsening, which led her to present to the emergency room last night. In the emergency room, white blood count was noted to be normal with a slight left shift. CT scan of the abdomen and pelvis was obtained and revealed a dilated appendix measuring 9 mm in diameter, slightly increased from the time of her prior scan when measurements were 7-8 mm. There is no periappendiceal inflammation noted. She reports that the pain has decreased somewhat since she came into the emergency department, but has not resolved. IV antibiotic therapy was initiated during the night. Review of Systems Constitutional: Constitutional: Denies chills and Reports fever(s) Eyes: Eyes: Reports no additional eye complaints ENT: Denies hearing loss Cardiovascular: Cardiovascular: Denies chest pain and Reports dyspnea (Had COVID-19 last year, shortness of breath began at that time. Workup don) Respiratory: Respiratory: Reports dyspnea (Had COVID-19 last year, shortness of breath began at that time. Workup don) Comments: She reports that a workup was done for the shortness of breath that began following COVID. This included a CT scan of the chest. She reports that it was negative. Gastrointestinal: Gastrointestinal: Reports as per HPI Genitourinary: Genitourinary: Reports no additional female genitourinary complaints Comments: Currently menstruating Musculoskeletal: Musculoskeletal: Reports no additional musculoskeletal complaints Hematologic/Lymphatic: Hematologic/Lymphatic: Denies easy bleeding PMFSH Past Medical History Medical History (Updated 12/20/20 @ 09:45 by Jesenia John MD) delivery delivered COVID-19 No known health problems Date of last menstrual period: 12/17/20 Family History Family History (Updated 12/20/20 @ 09:46 by Jesenia John MD) Mother Uterine cancer Maternal Grandmother Uterine cancer Pertinent family history: She reports numerous family members on maternal side have been diagnosed with uterine cancer Social History Social History Alcohol intake: never Patient Tobacco Use Status: Never used Tobacco Use of substances other than those prescribed or required for medical reasons: No Advance Directives: No Advance Directives Information Provided: No Patient : No Meds Allergies Allergy/AdvReac Type Severity Reaction Status Date / Time Penicillins [PENICILLINS] Allergy Unknown UNKNOWN Unverified 12/06/19 19:51 Active Medications: Current Medications Acetaminophen (Acetaminophen 325 Mg Tablet) 650 mg PO Q6H PRN PRN Reason: Pain, Mild (Pain Scale 1-3) Metronidazole (Flagyl) 500 mg in 100 mls @ 100 mls/hr IV Q8H [facility] Last Infusion: 12/20/20 08:32 Dose: Infused Documented by: Ceftriaxone Sodium 1 gm/ (Sodium Chloride) 50 mls @ 100 mls/hr IV Q12H [facility] Dextrose/Lactated Ringer's (D5lr) 1,000 mls @ 100 mls/hr IVCONT .Q10H [facility] Last Admin: 12/20/20 02:19 Dose: 100 mls/hr Documented by: Morphine Sulfate (Morphine Sulfate 4 Mg/Ml Cartridge) 4 mg IVPUSH Q3H PRN; Protocol PRN Reason: Pain, severe Ondansetron HCl (Ondansetron Hcl 4 Mg/2 Ml Vial) 4 mg IVPUSH Q8H PRN PRN Reason: Nausea Home Medications Medication Instructions Recorded Confirmed Last Taken Type lorazepam 0.5 mg tablet 1 tab PO BEDTIME 12/20/20 Unknown History Physical Exam Vital Signs: Vital Signs: Last Vital Signs Temp 98.0 F 12/20/20 08:34 Pulse 73 12/20/20 08:34 Resp 14 12/20/20 08:34 BP 100/60 12/20/20 08:34 Pulse Ox 97 12/20/20 08:34 Body Mass Index 22.8 Const: General: cooperative, no acute distress and alert Orientation/consciousness: patient oriented x3 HENMT: Head: Yes normocephalic and Yes atraumatic Eyes: EOM: EOMs intact bilaterally Resp: Effort & Inspection: normal respiratory effort Auscultation: rhonchi (Scattered) Cardio: Rate: regular rate Rhythm: regular rhythm Skin: Other: Warm and dry General skin exam: no rashes or lesions noted Neuro: General: patient oriented x3 Extrem: General: Yes normal to inspection Results Results Labs: Short CBC 12/19/20 Range/Units 22:48 WBC 10.3 (4.8-10.8) X10*3/uL Hgb 11.5 L (12.0-16.0) g/dl Hct 34.5 L (37-47) % Plt Count 200 (160-400) X10*3/uL BMP 12/19/20 22:48 Sodium 138 Potassium 3.6 Chloride 105 Carbon Dioxide 25 BUN 8 L Creatinine 0.68 Calcium 9.4 Liver Function 12/19/20 Range/Units 22:48 Total Bilirubin 0.6 (0.0-1.0) mg/dL AST 14 (5-31) U/L ALT 8 (0-31) U/L Alkaline Phosphatase 55 (39-117) U/L Albumin 4.5 (3.5-5.0) g/dL Urine 12/19/20 12/19/20 Range/Units 22:48 22:48 Urine Color YELLOW Urine Appearance CLEAR Urine pH 7.0 (5.0-8.0) Ur Specific [place] 1.010 (1.005-1.025) Urine Protein NEG (NEG-TRACE) MG/DL Urine Glucose (UA) NEG (NEG) MG/DL Urine Test NEGATIVE (NEGATIVE) Assessment and Plan (1) Acute appendicitis: Status: Acute 35-year-old female with probable early acute appendicitis. We discussed the diagnosis and CT findings. I explained that her exam findings and history are consistent with the diagnosis of appendicitis and that the CT scan findings are suggestive though certainly not definitive. We discussed options for treatment including a laparoscopic appendectomy with potential need to convert to open, and antibiotic therapy with continued observation. We reviewed the technique of appendectomy and anticipated course of healing as well as risks including but not limited to infection, bleeding, DVT and PE, error in diagnosis and appendiceal stump leak. I explained that she may have a somewhat increased risk of bleeding due to the presence of dilated pelvic veins and prior history of section which increases the chance that adhesions will be present. We also discussed the option for antibiotic therapy. I explained that it is successful and 75-80% of cases and that, if it is successful, there is about a 25% risk of recurrent appendicitis. We also discussed that, if she does not improve promptly, surgery would be recommended. After discussion, she elected to continue with the antibiotics an observation for now, though she is considering the option of surgical treatment. We will await results of her a.m. CBC and follow her exam and symptoms. Quality Stroke Does the patient have a stroke diagnosis?: No VTE Prior VTE?: No VTE Risk Level:: Surgical - low VTE Device Contraindication: N/A - Device Ordered VTE Drug Contraindication: Treatment Not Indicated Procedures Date of Service Date of Service: 12/20/20
[2020-12-20 10:07] LABS: MANUAL DIFF FLAG NO
[2020-12-20 10:29] LABS: Basophils Percent Auto 0.4 % (0-2); Eosinophils Absolute Auto 0.1 X10*3/uL (0.0-0.4); Eosinophils Percent Auto 1.1 % (0-4); Hemoglobin 9.6 g/dl (12.0-16.0); Imm Gran Abs Auto 0.01 X10*3/uL (0.00-0.03); Imm Gran Pct Auto 0.2 % (0.0-0.4); Mean Corpuscular HGB Conc 33.1 g/dl (31.0-35.0); Mean Corpuscular Hemoglobin 29.1 pg (27.0-33.0); Mean Corpuscular Volume 87.9 fL (80-98); Mean Platelet Volume 11.1 fL (9.4-12.3); Monocytes Absolute Auto 0.5 X10*3/uL (0.1-1.2); Monocytes Percent Auto 9.7 % (2-11); Neutrophils Absolute Auto 3.1 X10*3/uL (2.0-8.3); Neutrophils Percent Auto 66.6 % (45-73); Platelet Count 167 X10*3/uL (160-400); Red Cell Distribution Width 13.5 % (11.0-16.0); White Blood Count 4.6 X10*3/uL (4.8-10.8)
--- NOTE | 2020-12-20 15:20 | PC.NURSE ---
attempt to give report to s3
--- NOTE | 2020-12-20 15:21 | PC.NURSE ---
report given to s3
[2020-12-20 15:40] VITALS: BMI 24.0
[2020-12-20 16:00] VITALS: BP 105/63; PULSE 61; RESP 18; TEMP 36.6; O2SAT 100
--- NOTE | 2020-12-20 16:27 | MHC.CM.PN ---
Addendum entered by Juliet Liao 12/21/20 15:22: PT COMPLETED A HCP TODAY NAMING HER S/O HER AGENT Original Note: CM MET WITH PT AND HER S/O WHO WAS AT BEDSIDE PT LIVES WITH HER S/O AND IS INDEPENDENT WITH ALL CARE PT USES NO DME AND HAS NO SERVICES PT REPORTS HER PCP IS AT [facility] IN [place] BUT SHE DOES NOT KNOW THE NAME CURRENT DC PLAN IS HOME WITH ON SERVICES S/O TO TRANSPORT
[2020-12-20] MEDS: Acetaminophen 325 MG TABLET 650 MG PO (16:46)
--- NOTE | 2020-12-20 17:16 | P.EN_ITS ---
Event Note Date of Service: 12/20/20 Event Note: She is feeling better. She still has some right lower quadrant pa in. It is coming and going. The intensity is much less than it had been on presentation last night. She is not hungry but feels ready to start on liquids. Afebrile, BP 100/60, pulse 73, respirations 14 Abdomen soft, flat, mildly tender right lower quadrant without rebound Improving on IV antibiotics. Will begin full liquid diet.
[2020-12-20 19:31] VITALS: BP 108/62; PULSE 56; RESP 18; TEMP 36.3; O2SAT 98
[2020-12-21] VITALS (7 sets, daily range): BP systolic 100–117; BP diastolic 60–77; PULSE 60–71; RESP 14–19; TEMP 36.2–37; O2SAT 98–100
[2020-12-21 05:59] LABS: Hematocrit 27.8 % (37-47); Mean Corpuscular HGB Conc 32.4 g/dl (31.0-35.0); Mean Corpuscular Hemoglobin 28.6 pg (27.0-33.0); Mean Corpuscular Volume 88.3 fL (80-98); Mean Platelet Volume 11.5 fL (9.4-12.3); Platelet Count 148 X10*3/uL (160-400); Red Blood Count 3.15 X10*6/uL (4.20-5.50); Red Cell Distribution Width 13.6 % (11.0-16.0); White Blood Count 3.5 X10*3/uL (4.8-10.8)
[2020-12-21] MEDS: metroNIDAZOLE/NS 500 MG/100 ML PIGGYBACK 100 MG IV ×2 (07:57→22:44)
--- NOTE | 2020-12-21 12:18 | PM.PNGS ---
Subjective Subjective Date of Service: 12/21/20 Interval history: Her right lower quadrant pain has continued to resolve. Now very mild. Coming and going. Tolerating clear liquids. No nausea. Physical Exam Vital Signs: Vital Signs: Last Vital Signs Temp 97.6 F 12/21/20 11:40 Pulse 71 12/21/20 11:40 Resp 18 12/21/20 11:40 BP 117/71 12/21/20 11:40 Pulse Ox 100 12/21/20 11:40 Body Mass Index 24.0 Laboratory Results - last 24 hr 12/21/20 05:47 WBC 3.5 L RBC 3.15 L Hgb 9.0 L Hct 27.8 L MCV 88.3 MCH 28.6 MCHC 32.4 RDW 13.6 Plt Count 148 L MPV 11.5 Absolute Nucleated RBC 0.000 Nucleated RBC % (a uto) 0.0 Const: General: cooperative, comfortable and alert Resp: Effort & Inspection: normal respiratory effort Auscultation: clear to auscultation bilaterally Cardio: Rate: regular rate Rhythm: regular rhythm GI: Other: Soft, flat. Bowel sounds active. Mild focal tenderness right lower quadrant without rebound Procedures Date of Service Date of Service: 12/21/20 Progress Note: A&P Assessment and plan (1) Acute appendicitis: Status: Acute Assessment and Plan: Acute appendicitis, improving with antibiotic therapy. Will discontinue IV fluids, switch to p.o. antibiotics. Advanced to solid diet. If she tolerates this, anticipate discharge on oral antibiotics later today. Fall Risk Details Current Medications: Current Medications Acetaminophen (Acetaminophen 325 Mg Tablet) 650 mg PO Q6H PRN PRN Reason: Pain, Mild (Pain Scale 1-3) Last Admin: 12/20/20 16:46 Dose: 650 mg Documented by: Metronidazole (Metronidazole 500 Mg Tablet) 500 mg PO Q8H [facility] Morphine Sulfate (Morphine Sulfate 4 Mg/Ml Cartridge) 4 mg IVPUSH Q3H PRN; Protocol PRN Reason: Pain, severe Ondansetron HCl (Ondansetron Hcl 4 Mg/2 Ml Vial) 4 mg IVPUSH Q8H PRN PRN Reason: Nausea Trimethoprim/Sulfamethoxazole (Sulfamethox/Trimeth 800/160 Tablet) 1 tab PO Q12H [facility] Time Spent With Patient Time: Total time spent is greater than 50% in coordination of care (as documented) at patient's floor/unit and/or counseling patient: Time with patient: less than 15 minutes Quality Stroke Does the patient have a stroke diagnosis?: No VTE Prior VTE?: No VTE Risk Level:: Surgical - low VTE Device Contraindication: N/A - Device Ordered VTE Drug Contraindication: Treatment Not Indicated
[2020-12-21] MEDS: Sulfamethox/Trimeth 800/160 TABLET 1 TAB PO (13:36)
[2020-12-21] MEDS: metroNIDAZOLE 500 MG TABLET PO (14:23)
--- NOTE | 2020-12-21 15:22 | MHC.CM.PN ---
PT BEING CLEARED TO DC TODAY, HOME WITH NO SERVICES
[2020-12-21] MEDS: Acetaminophen 325 MG TABLET 650 MG PO (15:40)
--- NOTE | 2020-12-21 16:27 | PM.DS ---
DS: Providers Provider Date of Service: 12/21/20 Date of admission: 12/20/20 00:30 Date of discharge: 12/21/20 Primary care physician: Unknown Physician Attending physician on admission: Jesenia John Attending physician on discharge: Jesenia John DS: Diagnosis Discharge Diagnosis (1) Acute appendicitis: Status: Acute DS: Summary Hospital Course Hospital Course: This is a 35-year-old female who presented to the emergency department early yesterday with a 1 day history of right lower quadrant abdominal pain and chills but no fever. Appetite was diminished. She had no change in bowel habit. Workup revealed a normal white blood count. CT scan of the abdomen and pelvis demonstrated a somewhat enlarged appendix with diameter of 9 mm but with no surrounding inflammatory change Time Spent with Patient Time attestation: Total time spent providing and/or coordinating discharge services: Physical Exam Vital Signs: Vital Signs: Last Vital Signs Temp 98.1 F 12/21/20 15:32 Pulse 61 12/21/20 15:32 Resp 19 12/21/20 15:32 BP 110/65 12/21/20 15:32 Pulse Ox 100 12/21/20 15:32 Body Mass Index 24.0 DS: Data Data Completed and Pending Labs on day of discharge: Laboratory Results - last 24 hr 12/21/20 05:47 WBC 3.5 L RBC 3.15 L Hgb 9.0 L Hct 27.8 L MCV 88.3 MCH 28.6 MCHC 32.4 RDW 13.6 Plt Count 148 L MPV 11.5 Absolute Nucleated RBC 0.000 Nucleated RBC % (auto) 0.0 Preliminary micro results at discharge 12/19/20 22:48 Blood Culture - Preliminary Blood - Venous No growth after 24 hours. 12/19/20 22:48 Blood Culture - Preliminary Blood - Venous No growth after 24 hours. Discharge Plan Discharge Patient Disposition: Home, Self-Care Discharge Diagnosis: Acute appendicitis Referrals: Matthew Diane MD [Physician] - 1 Week (f/u antibiotic therapy for appendicitis) Physician,Unknown [Primary Care Provider] - 1 Week Discharge Medications: New metronidazole 500 mg tablet 500 mg PO Q8H Qty: 18 RF: 0 sulfamethoxazole-trimethoprim 800-160 mg tablet 1 tab PO Q12H Qty: 12 RF: 0 acetaminophen 325 mg Tablet 650 mg PO Q6H PRN (Reason: Pain, Mild (Pain Scale 1-3)) Qty: 20 RF: 0 Continued naproxen 500 mg tablet 500 mg PO BID PRN (Reason: pain) Qty: 20 RF: 0 lorazepam 0.5 mg tablet 1 tab PO BEDTIME RF: 0 Discharge Orders: Discharge Order (Routine); Ordered 12/21/20 Ordered By: Jesenia John Diet: advance to usual diet Activity on Discharge: As tolerated Stand Alone Forms: Patient Portal Discharge page Activity Restrictions/Additional Instructions: Call the office if you have any questions. If you develop fever, increasing pain, or persistent nausea or vomiting, call the office or return to the emergency department for reassessment. Care Plan Goals: complete course of antibiotics, resolution of abdominal pain Health Concerns: acute appendicitis Plan of Treatment: Antibiotics Assessment: improved
[2020-12-21] MEDS: cefTRIAXone sodium 1 GM in 0.9 % Sodium Chloride 50 ML IV (17:41)
[2020-12-22 03:48] VITALS: BP 106/62; PULSE 59; RESP 16; TEMP 36.6; O2SAT 100
[2020-12-22] MEDS: cefTRIAXone sodium 1 GM in 0.9 % Sodium Chloride 50 ML IV ×2 (05:11→17:03)
[2020-12-22 07:26] VITALS: BP 122/69; PULSE 73; RESP 15; TEMP 36.4; O2SAT 100
[2020-12-22] MEDS: iohexoL 350 MG/ML 100 ML INFUS..BTL 85 ML IV (09:11)
--- NOTE | 2020-12-22 10:25 | PM.PNGS ---
Subjective Subjective Date of Service: 12/22/20 Interval history: Patient is extremely anxious She has concerned that if she goes home she may have pain again Now thinking about going ahead with appendectomy No nausea or vomiting No fever Physical Exam Vital Signs: Vital Signs: Last Vital Signs Temp 97.6 F 12/22/20 07:26 Pulse 73 12/22/20 07:26 Resp 15 12/22/20 07:26 BP 122/69 12/22/20 07:26 Pulse Ox 100 12/22/20 07:26 Body Mass Index 24.0 Const: Other: Very anxious General: comfortable and no acute distress Resp: Effort & Inspection: normal respiratory effort Auscultation: clear to auscultation bilaterally Cardio: Rate: regular rate Procedures Date of Service Date of Service: 12/22/20 Progress Note: A&P Assessment and plan (1) Acute appendicitis: Status: Acute Assessment and Plan: Patient actually has been improving However this morning was extremely anxious and says that she was considering surgery again after not wanting to have it done over the weekend She states she was very concerned that this might recur when she goes home I therefore repeated her CT scan The appearance of the area of the appendix looks stable without any worsening inflammatory changes Reviewed with radiologist - diagnosis questionable for early appendicitis still Explained this to the patient She says she now wants to see how she does today again She says that she will decide again tomorrow morning whether she will go home work go ahead with surgery Otherwise non septic looking Exam benign although with some mild tenderness on the right side WBC had decreased Okay to eat again today Fall Risk Details Current Medications: Current Medications Acetaminophen (Acetaminophen 325 Mg Tablet) 650 mg PO Q6H PRN PRN Reason: Pain, Mild (Pain Scale 1-3) Last Admin: 12/21/20 15:40 Dose: 650 mg Documented by: Ceftriaxone Sodium 1 gm/ (Sodium Chloride) 50 mls @ 100 mls/hr IV Q12H [facility] Last Infusion: 12/22/20 05:47 Dose: Infused Documented by: Metronidazole (Flagyl) 500 mg in 100 mls @ 100 mls/hr IV Q8H [facility] Last Admin: 12/22/20 07:27 Dose: Not Given Documented by: Lactated Ringer's (Lr) 1,000 mls @ 80 mls/hr IVCONT .[id number] [facility] Morphine Sulfate (Morphine Sulfate 4 Mg/Ml Cartridge) 4 mg IVPUSH Q3H PRN; Protocol PRN Reason: Pain, severe Ondansetron HCl (Ondansetron Hcl 4 Mg/2 Ml Vial) 4 mg IVPUSH Q8H PRN PRN Reason: Nausea Time Spent With Patient Time: Total time spent is greater than 50% in coordination of care (as documented) at patient's floor/unit and/or counseling patient: Time with patient: 15 - 24 minutes Quality Stroke Does the patient have a stroke diagnosis?: No VTE Prior VTE?: No VTE Risk Level:: Surgical - low VTE Device Contraindication: N/A - Device Ordered VTE Drug Contraindication: Treatment Not Indicated
[2020-12-22] MEDS: Lactated Ringers 1,000 ML 60 ML IVCONT (10:38)
--- NOTE | 2020-12-22 11:23 | MHC.CM.PN ---
EMR REVIEWED AND DISCUSSED W/PT'S NURSE, PT WAS SCHEDULED FOR SURGERY HOWEVER HAS CHANGED HER MIND MULTIPLE TIMES TODAY, NSG HAS TIGERED SURGEON TO MEET W/PT. CM WILL CONT TO FOLLOW.
[2020-12-22 11:35] VITALS: BP 106/60; PULSE 78; RESP 17; TEMP 36.4; O2SAT 98
[2020-12-22] MEDS: metroNIDAZOLE/NS 500 MG/100 ML PIGGYBACK 100 MG IV ×2 (13:24→22:14)
[2020-12-22 15:16] VITALS: BP 133/79; PULSE 73; RESP 17; TEMP 36.6; O2SAT 100
--- NOTE | 2020-12-22 16:39 | PM.EVENT ---
Event Note Date of Service: 12/22/20 Event Note: The patient was seen and examined this afternoon on late rounds Continues do well She currently denies significant pain I had reviewed her CAT scan with her and this shows no changes with regards to the area of her appendix. Findings on imaging study remain equivocal I therefore had a long discussion with her and her Natanael at bedside. The plan is to continue with current antibiotic treatment as discussed with them We will restart her diet tonight She says that she will re-evaluate options again tomorrow morning decide whether she will proceed with appendectomy or not She remains very anxious about going home and having pain, and at the same time is very anxious about having surgery Abdominal exam clinically benign although with some tenderness on the right side
[2020-12-22 19:29] VITALS: BP 136/64; PULSE 68; RESP 17; TEMP 36.6; O2SAT 98
[2020-12-22 23:58] VITALS: BP 113/64; PULSE 59; RESP 16; TEMP 36.3; O2SAT 98
[2020-12-23] MEDS: Lactated Ringers 1,000 ML 80 ML IVCONT (03:14)
[2020-12-23 03:51] VITALS: BP 112/62; PULSE 57; RESP 16; TEMP 36.6; O2SAT 99
[2020-12-23] MEDS: cefTRIAXone sodium 1 GM in 0.9 % Sodium Chloride 50 ML IV (05:59)
[2020-12-23 07:21] VITALS: BP 112/58; PULSE 56; RESP 16; TEMP 36.5; O2SAT 98
--- NOTE | 2020-12-23 08:47 | PM.EVENT ---
Event Note Date of Service: 12/23/20 Event Note: she says she has some pain on the right although not worse she states she is very anxious about going home and having another episode she now says she just wants to proceed with appendectomy I had another long discussion with her about technique of lap appy, possible open I reviewed extensively the risks including but not limited to bleeding, infection, bowel injury, urinary tract injury,inherent risks of anesthesia I explained to her that at this time,the diagnosis of appendicitis is equivocal WBC is low some anemia, although her Hg from last year was 10.9 she says she just wants to have her appendix out
--- NOTE | 2020-12-23 11:07 | MHC.CM.PN ---
PT DECLINING LAP APPENDECTOMY, PT DISCHARGING HOME SELF-CARE, FAMILY FOR TRANSPORT
--- NOTE | 2020-12-23 11:13 | PM.PNGS ---
Subjective Subjective Date of Service: 12/23/20 Interval history: I had talked to the patient earlier and she had wanted to proceed with appendectomy However, she had called me again this morning state that she wants to go home and has decided not to go ahead with surgery See event note earlier Physical Exam Vital Signs: Vital Signs: Last Vital Signs Temp 97.7 F 12/23/20 07:21 Pulse 56 12/23/20 07:21 Resp 16 12/23/20 07:21 BP 112/58 L 12/23/20 07:21 Pulse Ox 98 12/23/20 07:21 Body Mass Index 24.0 Const: Other: Hematology 12/21/20 05:47 WBC 3.5 L Hgb 9.0 L Plt Count 148 L General: comfortable, no acute distress and awake Resp: Effort & Inspection: normal respiratory effort Cardio: Rate: regular rate GI: Other: Minimal tenderness on the right lower quadrant Palpation (GI): Soft to palpation, not firm, no guarding and not rigid Procedures Date of Service Date of Service: 12/23/20 Progress Note: A&P Assessment and plan (1) Right lower quadrant pain: Status: Acute Assessment and Plan: She again had called me to say that she does not want to proceed with surgery She says that she would like to go home She is willing to go for oral antibiotics when she is discharged I did have a long discussion with her about the pain possibly recurring down the line Review of her CT scan also shows that she may have some pelvic congestion that may explain the pain as well She does not have any leukocytosis Her exam is very benign She will follow-up with me in the office Her [id number] was in the room during the discussion and had agreed with the patient's plan Fall Risk Details Current Medications: Current Medications Acetaminophen (Acetaminophen 325 Mg Tablet) 650 mg PO Q6H PRN PRN Reason: Pain, Mild (Pain Scale 1-3) Last Admin: 12/21/20 15:40 Dose: 650 mg Documented by: Metronidazole (Flagyl) 500 mg in 100 mls @ 100 mls/hr IV Q8H [facility] Last Admin: 12/23/20 07:22 Dose: Not Given Documented by: Lactated Ringer's (Lr) 1,000 mls @ 80 mls/hr IVCONT .[id number] [facility] Last Admin: 12/23/20 03:14 Dose: 80 mls/hr Documented by: Lactated Ringer's (Lr) 1,000 mls @ 60 mls/hr IVCONT .[id number] [facility] Last Admin: 12/23/20 04:19 Dose: Not Given Documented by: Ceftriaxone Sodium 1 gm/ (Sodium Chloride) 50 mls @ 100 mls/hr IV Q24H [facility] Morphine Sulfate (Morphine Sulfate 4 Mg/Ml Cartridge) 4 mg IVPUSH Q3H PRN; Protocol PRN Reason: Pain, severe Ondansetron HCl (Ondansetron Hcl 4 Mg/2 Ml Vial) 4 mg IVPUSH Q8H PRN PRN Reason: Nausea Time Spent With Patient Time: Total time spent is greater than 50% in coordination of care (as documented) at patient's floor/unit and/or counseling patient: Time with patient: 15 - 24 minutes Quality Stroke Does the patient have a stroke diagnosis?: No VTE Prior VTE?: No VTE Risk Level:: Surgical - low VTE Device Contraindication: N/A - Device Ordered VTE Drug Contraindication: Treatment Not Indicated
[2020-12-23 11:18] VITALS: BP 115/74; PULSE 68; RESP 18; TEMP 36.6; O2SAT 100
--- NOTE | 2020-12-24 11:17 | PM.DS ---
DS: Providers Provider Date of Service: 12/23/20 Date of admission: 12/20/20 00:30 Primary care physician: Gurpreet Physician Attending physician on admission: Jesenia John Attending physician on discharge: Toby Holman DS: Diagnosis Discharge Diagnosis (1) Right lower quadrant pain: Status: Acute DS: Summary Hospital Course Hospital Course: BRIEF HPI: Keegan Rose is a 35 year old female who experienced acute onset of right lower quadrant abdominal pain associated with mild nausea, slight fever and diminished appetite yesterday.? The pain was persistent and gradually worsening, which led her to present to the emergency room last night.? In the emergency room, white blood count was noted to be normal with a slight left shift.? CT scan of the abdomen and pelvis was obtained and revealed a dilated appendix measuring 9 mm in diameter, slightly increased from the time of her prior scan when measurements were 7-8 mm.? There is no periappendiceal inflammation noted. She reports that the pain has decreased somewhat since she came into the emergency department, but has not resolved.? IV antibiotic therapy was initiated during the night. HOSPITAL COURSE: She was admitted to the surgical service for further treatment of the presumed acute appendicitis. Exam findings and history were consistent with the diagnosis of appendicitis and that the CT scan findings are suggestive though certainly not definitive.? Treatment options were thoroughly discussed with the patient by Dr. John. She elected to continue with the antibiotics and observation for now, though she was considering the option of surgical treatment.? The patient continued to resolve and she felt well. She continued to have no leukocytosis. She was advanced to a regular diet with transition to PO antibiotics with the plan for discharging to home if she was tolerating. She however developed a slight increase in RLQ pain following food and was very anxious about being discharged to home and possible need for appendectomy despite that her abdomen remained very benign and was deemed stable for discharge. She therefore remained inpatient for observation, the following two days she decided to proceed with appendectomy and then changed her mind later on and wanted to avoid surgery. At this point care had been transferred to Dr. Holman who also had multiple extensive discussions about the treatment. She remained asymptomatic without any abdominal pain. She therefore elected to continue antibiotic therapy. She was discharged to home on 12/23/20 in stable condition. She was discharged on PO bactrim and flagyl. She is to follow up with Dr. Holman in office. Status at Discharge Functional status at discharge: independent ambulation Overall status at discharge: patient is back to baseline Time Spent with Patient Time attestation: Total time spent providing and/or coordinating discharge services: Discharge coordination time: Less than 30 minutes Quality: Stroke Does the patient have a stroke diagnosis?: No Physical Exam Vital Signs: Vital Signs: Last Vital Signs Temp 97.8 F 12/23/20 11:18 Pulse 68 12/23/20 11:18 Resp 18 12/23/20 11:18 BP 115/74 12/23/20 11:18 Pulse Ox 100 12/23/20 11:18 Body Mass Index 24.0 Const: General: healthy appearing, comfortable and alert Orientation/consciousness: patient oriented x3 GI: Inspection: No distended Palpation (GI): Soft to palpation, nontender, no guarding and not rigid Percussion: Yes normal to percussion Skin: General skin exam: no rashes or lesions noted Neuro: General: patient oriented x3 DS: Data Data Completed and Pending Labs on day of discharge: Preliminary micro results at discharge 12/19/20 22:48 Blood Culture - Preliminary Blood - Venous Prelim: GPR Gram Stain only 12/19/20 22:48 Blood Culture - Preliminary Blood - Venous No growth after 48 hours. Discharge Plan Discharge Patient Disposition: Home, Self-Care Discharge Diagnosis: Acute appendicitis Referrals: Toby Holman MD [Physician] - 2 Weeks Physician,Gurpreet J [Physician] - 1 Week Discharge Medications: New acetaminophen 325 mg Tablet 650 mg PO Q6H PRN (Reason: Pain, Mild (Pain Scale 1-3)) Qty: 20 RF: 0 levofloxacin 500 mg tablet 500 mg PO Q24H Qty: 7 RF: 0 sulfamethoxazole-trimethoprim [Bactrim DS] 800-160 mg tablet 1 tab PO BID Qty: 14 RF: 0 Continued naproxen 500 mg tablet 500 mg PO BID PRN (Reason: pain) Qty: 20 RF: 0 lorazepam 0.5 mg tablet 1 tab PO BEDTIME RF: 0 Discharge Orders: Discharge Order (Routine); Ordered 12/23/20 Ordered By: Toby Holman Diet: advance to usual diet Activity on Discharge: As tolerated Stand Alone Forms: Patient Portal Discharge page Activity Restrictions/Additional Instructions: Call the office or return to the ED if you develop worsening abdominal pain, nausea or vomiting, fevers, chills. Care Plan Goals: Return to baseline health. Health Concerns: acute appendicitis Plan of Treatment: PO antibiotics, discharge to home, f/u in office Assessment: improved Discharge Date/Time: 12/23/20 13:16
== END 2020-12-23 13:16 | disposition home or self-care (01) | DRG 254 ==
LOC: HO.ED 12-20 00:31 → HO.EDOVER 12-20 00:42 → HO.S3 12-20 15:10
PROVIDERS: Admitting Provider Surgery; Emergency Provider Student in an Organized Health Care Education/Training Program; PCP Physician Assistant Medical; Visit Provider Surgery
DX: K35.80 Unspecified acute appendicitis (principal); Z20.822 Contact with and (suspected) exposure to COVID-19; Z88.0 Allergy status to penicillin; Z79.899 Other long term (current) drug therapy
CPT/HCPCS: 36415; 74177; 80053; 81001; 81025; 83605; 83690; 85025; 85027; 87040; 87205; 87635; 99218; 99285; J0696; Q9967

== ENCOUNTER 2022-05-10 13:28 | Outpatient (REF) | payer OTHER, SELFPAY ==
[2022-05-10 14:19] LABS: Rheumatoid Factor < 13.0 IU/mL (<15.0)
[2022-05-10 14:33] LABS: Erythrocyte Sedimentation Rate 5 MM/HR (0-20)
[2022-05-13 17:18] LABS: Anti Nuclear Antibody Screen POSITIVE (NEGATIVE)
== END 2022-05-10 13:29 | disposition home or self-care (01) ==
LOC: HO.LAB 13:28
PROVIDERS: PCP Physician Assistant Medical; Visit Provider Psychiatry & Neurology Neurology
DX: M25.50 Pain in unspecified joint (principal)
CPT/HCPCS: 36415; 85652; 86038; 86039; 86431

== ENCOUNTER 2022-12-29 14:06 | Outpatient (REF) | payer MEDICAID, SELFPAY | END 2022-12-29 14:07 | disposition home or self-care (01) | LOC: HO.LAB 14:06 | PROVIDERS: Visit Provider Psychiatry & Neurology Neurology | DX: G56.00 Carpal tunnel syndrome, unspecified upper limb (principal) | CPT/HCPCS: 36415; 80048; 83540; 84443; 85025 ==